=== PATIENT | male | born 1980 | race Caucasian/White ===

== ENCOUNTER → 2018-07-30 10:11 | Outpatient (CLI) | payer BC, SELFPAY ==
--- NOTE | 2018-07-30 10:18 | RAD_ITS ---
STUDY: X-RAY - LEFT WRIST REASON FOR EXAM: Left wrist swelling for 1.5 years. TECHNIQUE: 3 view(s) of the wrist were obtained. COMPARISON: None. FINDINGS: Normal visualized distal radius and ulna. Normal radiocarpal articulation. Normal distal radioulnar articulation. 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 Normal carpal articulations. Normal carpometacarpal articulation of the thumb. Normal second through fifth carpometacarpal articulations. Normal visualized metacarpal bones. The soft tissue structures are unremarkable. 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 Electronically Signed: Mick Murguia MD at 10:37 EDT Tel , Service support ,
== END ==
PROVIDERS: Family Provider Family Medicine; PCP Family Medicine; Referring Provider Family Medicine; Visit Provider Family Medicine
DX: M25.532 Pain in left wrist (principal)
CPT/HCPCS: 73110

== ENCOUNTER → 2018-09-30 07:17 | Outpatient (CLI) | payer BC, SELFPAY ==
--- NOTE | 2018-09-30 07:28 | MRI_ITS ---
STUDY: MRI LEFT WRIST WITHOUT CONTRAST REASON FOR EXAM: Male, 37 years old. Wrist pain and swelling TECHNIQUE: Standardized fat and water weighted pulse sequences were obtained in all 3 orthogonal planes. COMPARISON: X-ray 07/30/2018 FINDINGS: Normal visualized distal radius and ulna. Normal distal radioulnar Articulation (DRUJ). Normal triangular fibrocartilaginous complex (TFCC). Coronally oriented fracture line through the lunate bone with surrounding hyperintensity consistent with severe contusion or edema. If this is a chronic injury findings are worrisome for avascular necrosis (Kienbock's malacia). Moderate joint effusion of the wrist. Normal radiocarpal, intercarpal and midcarpal articulations. Normal pisotriquetral articulation. Normal visualized interosseous scapholunate ligament. Normal visualized dorsal (extrinsic) ligaments. Normal visualized volar (extrinsic) ligaments. Normal extensor tendons. Normal flexor tendons. Normal carpal tunnel with a normal median nerve. Normal carpometacarpal articulation of the thumb. Normal second through fifth carpometacarpal articulations. Normal visualized metacarpal bones. There is no demonstrated soft tissue abnormality. 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 Electronically Signed: Foreign Barajas MD at 8:59 EDT Tel , Service support ,
== END ==
PROVIDERS: Family Provider Family Medicine; PCP Family Medicine; Referring Provider Family Medicine; Visit Provider Family Medicine
DX: M25.532 Pain in left wrist (principal)
CPT/HCPCS: 73221